=== PATIENT | male | born 1965 | race Caucasian/White ===

== ENCOUNTER 2016-11-29 20:12 | Emergency (ER) | payer OTHER ==
[~2016-11-29] VITALS: Ht 177.8 cm; Wt 74.4 kg
--- NOTE | 2016-11-29 21:49 | NUR ---
Patient discharged to home in stable conditon. Written and verbal after care instructions given. Patient verbalizes understanding of instructions.
== END 2016-11-29 22:14 | disposition home or self-care (01) ==
LOC: ER 20:17
DX: M25.422 Effusion, left elbow (principal); M70.22 Olecranon bursitis, left elbow; Z59.0 Homelessness; Y93.89 Activity, other specified
CPT/HCPCS: 73080; A4663